=== PATIENT | male | born 1980 | race Caucasian/White ===

== ENCOUNTER 2019-01-03 10:12 | Outpatient (CLI) | payer OTHER | END 2019-01-03 10:13 | disposition home or self-care (01) | LOC: SC 10:12 | PROVIDERS: ATTEND Internal Medicine Pulmonary Disease | DX: R06.83 Snoring (principal); G47.8 Other sleep disorders; G47.10 Hypersomnia, unspecified; R41.89 Other symptoms and signs involving cognitive functions and awareness; R06.81 Apnea, not elsewhere classified; E66.9 Obesity, unspecified; Z68.34 Body mass index [BMI] 34.0-34.9, adult | CPT/HCPCS: 99203; 99212 ==

== ENCOUNTER 2019-01-26 19:25 | Outpatient (CLI) | payer OTHER | END 2019-01-26 19:26 | disposition home or self-care (01) | LOC: SC 19:25 | PROVIDERS: ATTEND Internal Medicine Pulmonary Disease | DX: G47.33 Obstructive sleep apnea (adult) (pediatric) (principal) | CPT/HCPCS: 95810 ==

== ENCOUNTER 2019-02-17 | Outpatient (CLI) | payer OTHER | END 2019-02-17 10:32 | disposition home or self-care (01) | DX: G47.33 Obstructive sleep apnea (adult) (pediatric) (principal) | CPT/HCPCS: 99212; 99215 ==

== ENCOUNTER 2019-04-24 09:08 | Emergency (ER) | payer OTHER ==
[2019-04-24] MEDS ORDERED: SODIUM CHLORIDE 0.9% 1,000 ML IV STA (09:18)
[2019-04-24] MEDS ORDERED: ONDANSETRON 4 MG/2 ML VIAL IVP STA (09:18)
[2019-04-24] MEDS ORDERED: KETOROLAC 30 MG/ML VIAL IVP STA (09:19)
[2019-04-24] MEDS ORDERED: LIDOCAINE-MPF 2% 7.5 ML in SODIUM CHLORIDE 0.9% 50 ML IV STA (09:34)
[2019-04-24] MEDS ORDERED: HYDROmorphone 1 MG/ML CARPUJECT IVP STA (09:34)
[2019-04-24 09:44] LABS: BASOPHILS # (AUTO) 0.1 10^3/uL (0.0-0.1); EOSINOPHILS # (AUTO) 0.1 10^3/uL (0.0-0.7); EOSINOPHILS % (AUTO) 0.7 %; HGB - HEMOGLOBIN 16.9 g/dL (14.0-18.0); LYMPHOCYTES # (AUTO) 2.1 10^3/uL (1.5-3.5); LYMPHOCYTES % (AUTO) 30.5 %; MEAN CORPUSCULAR HEMOGLOBIN 30.1 pg (27.0-31.0); MEAN CORPUSCULAR HGB CONC 34.3 g/dL (32.0-36.0); MEAN CORPUSCULAR VOLUME 87.5 fL (80.0-94.0); MEAN PLATELET VOLUME 9.8 fL (7.4-11.4); MONOCYTES # (AUTO) 0.6 10^3/uL (0.0-1.0); MONOCYTES % (AUTO) 8.2 %; NEUTROPHILS % (AUTO) 59.2 %; PLT - PLATELET COUNT 237 10^3/uL (130-450); RED BLOOD COUNT 5.62 10^6/uL (4.70-6.10); RED CELL DISTRIBUTION WIDTH 12.4 % (12.0-15.0); WHITE BLOOD COUNT 6.8 x10^3/uL (4.8-10.8)
[2019-04-24] MEDS ORDERED: IOVERSOL 320 100 ML VIAL IVP ONE ×2 (09:51→10:25)
[2019-04-24 09:55] LABS: ALBUMIN/GLOBULIN RATIO 1.9 (1.0-2.2); BILIRUBIN,TOTAL 1.3 mg/dL (0.2-1.0); CREATININE 1.2 mg/dL (0.6-1.2); TOTAL PROTEIN 7.7 g/dL (6.7-8.2)
--- NOTE | 2019-04-24 10:08 | ED Physician Documentation ---
History of Present Illness - Stated complaint Stated Complaint: MALE /BACK PX - Chief complaint Chief Complaint: Abd Pain - History obtained from History obtained from: Patient - History of Present Illness Timing: Today Pain level max: 10 Pain level now: 10 - Additonal information Additional information: 39-year-old male with a history of ureteral stones presents to the emergency department with left-sided pelvic pain radiating to the left flank. Similar to prior kidney stones. Has had ureteral stents x2. No fevers. No vomiting. Nothing makes it better or worse. 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 Last ureteral stone was approximately 10 years ago. Does have pain and burning with urination today. Review of Systems Ten Systems: 10 systems reviewed and negative Constitutional: denies: Fever, Chills Ears: denies: Ear pain Nose: denies: Rhinorrhea / runny nose, Congestion Respiratory: denies: Cough GI: denies: Diarrhea, Hematemesis, Bloody / black stool : reports: Dysuria. denies: Discharge, Testicular mass Skin: denies: Rash Musculoskeletal: denies: Neck pain PD PAST MEDICAL HISTORY - Past Medical History Past Medical History: Yes : Kidney stones - Present Medications Home Medications: Ambulatory Orders Medication Instructions Recorded Confirmed Ibuprofen [Motrin] 600 mg PO Q6H PRN 04/24/19 04/24/19 Ibuprofen [Motrin] 800 mg PO Q8H PRN #30 tablet 04/24/19 Ondansetron Odt [Zofran] 4 mg TL Q6H PRN #10 tablet 04/24/19 Oxycodone HCl/Acetaminophen 1 - 2 each PO Q6H PRN #14 tablet 04/24/19 [Percocet 5-325 mg Tablet] - Allergies Allergies/Adverse Reactions: Allergies Allergy/AdvReac Type Severity Reaction Status Date / Time No Known Drug Allergies Allergy Verified 04/24/19 09:18 PD ED PE NORMAL - Vitals Vital signs reviewed: Yes - General General: Alert and oriented X 3, Well developed/nourished, Other (Appears uncomfortable) - HEENT HEENT: PERRL, Moist mucous membranes - Neck Neck: Supple, no meningeal sign - Cardiac Cardiac: RRR - Respiratory Respiratory: No respiratory distress, Clear bilaterally - Abdomen Abdomen: Soft, Non distended, Other (Mild tenderness palpation along the left flank.) - Male Male : Other (Normal testicular exam bilaterally. No swelling. No tenderness) - Back Back: No spinal TTP, Other (Left CVA tenderness) - Derm Derm: Warm and dry - Extremities Extremities: No edema - Neuro Neuro: Alert and oriented X 3 - Psych Psych: Normal mood, Normal affect Results - Vitals Vitals: Vital Signs - 24 hr 04/24/19 04/24/19 04/24/19 09:15 10:07 12:00 Temperature 36.4 C L Heart Rate 69 87 77 Respiratory 18 18 20 Rate Blood Pressure 131/93 H 148/87 H 124/84 H O2 Saturation 100 99 98 Oxygen O2 Source Room air - Labs Labs: Laboratory Tests 04/24/19 04/24/19 04/24/19 09:34 09:38 09:38 WBC 6.8 RBC 5.62 Hgb 16.9 Hct 49.2 MCV 87.5 MCH 30.1 MCHC 34.3 RDW 12.4 Plt Count 237 MPV 9.8 Neut # (Auto) 4.0 Lymph # (Auto) 2.1 [place] # (Auto) 0.6 Eos # (Auto) 0.1 Baso # (Auto) 0.1 Absolute Nucleated RBC 0.00 Nucleated RBC % 0.0 Sodium 143 Potassium 4.0 Chloride 104 Carbon Dioxide 27 Anion Gap 12.0 BUN 13 Creatinine 1.2 Estimated GFR (MDRD) 68 L Glucose 102 H Calcium 10.0 Total Bilirubin 1.3 H AST 23 ALT 34 Alkaline Phosphatase 77 Total Protein 7.7 Albumin 5.0 Globulin 2.7 Albumin/Globulin Ratio 1.9 Lipase 28 Urine Color YELLOW Urine Clarity CLEAR Urine pH 5.5 Ur Specific [place] >=1.030 H Urine Protein TRACE Urine Glucose (UA) NEGATIVE Urine Ketones NEGATIVE Urine Occult Blood LARGE H Urine Nitrite NEGATIVE Urine Bilirubin NEGATIVE Urine Urobilinogen 0.2 (NORMAL) Ur Leukocyte Esterase NEGATIVE Urine RBC 6-10 H Urine WBC 0-3 Ur Squamous Epith Cells NONE SEEN Urine Bacteria Few Ur Microscopic Review INDICATED Urine Culture Comments NOT INDICATED - Rads (name of study) CT abdomen and pelvis Radiology: Prelim report reviewed, EMP read contemporaneously, See rad report (A 3 mm calculus in the left distal ureter results in low-grade obstruction, causing minimal left hydroureteronephrosis and mildly delayed left renal enhancement. 2. Hepatic steatosis. ) PD MEDICAL DECISION MAKING - ED course Complexity details: reviewed results, re-evaluated patient, considered differential, d/w patient ED course: Patient with a 3 mm left UVJ stone. Pain well controlled with Toradol, Dilaudid and IV lidocaine. Will place on pain medication for home. No evidence of infection. Patient counseled regarding signs and symptoms for which I believe and urgent re-evaluation would be necessary. Patient with good understanding of and agreement to plan and is comfortable going home at this time This document was made in part using voice recognition software. While efforts are made to proofread this document, sound alike and grammatical errors may occur. Departure - Departure Disposition: Home, Self Care Clinical Impression: Left ureteral stone Condition: Good Instructions: ED Stone Renal W Colic Follow-Up: your,doctor in 1 week [Other] Prescriptions: Ibuprofen [Motrin] 800 mg PO Q8H PRN #30 tablet PRN Reason: PAIN &/OR FEVER Ondansetron Odt [Zofran] 4 mg TL Q6H PRN #10 tablet PRN Reason: Nausea / Vomiting Oxycodone HCl/Acetaminophen [Percocet 5-325 mg Tablet] 1 - 2 each PO Q6H PRN #14 tablet PRN Reason: pain Comments: You have a 3mm left ureteral stone. This should pass without difficulty. Return for uncontrolled pain vomiting or fevers. Drink plenty of fluids. Do not drink alcohol or drive while on narcotic pain medicine. Note that many narcotic pain relievers also contain tylenol/acetaminophen. Please ensure that your total dose of acetaminophen from all sources does not exceed 3 grams (3000mg) per day. You may constipated on this medication, take a stool softener such as "Colace" twice a day while you are on it. Also recommend a ytfw-vny-jvnhwoz laxative such as senna or MiraLAX any day that you do not have a bowel movement. If you received narcotic pain medication in the emergency department, do not drive or operate machinery for the next 24 hours. Discharge Date/Time: 04/24/19 12:15
[2019-04-24 10:11] LABS: BILIRUBIN,URINE NEGATIVE (NEGATIVE); GLUCOSE, URINE (UA) NEGATIVE (NEGATIVE); KETONES,URINE (UA) NEGATIVE (NEGATIVE); LEUKOCYTE ESTERASE, URINE NEGATIVE (NEGATIVE); NITRITE,URINE NEGATIVE (NEGATIVE); OCCULT BLOOD,URINE LARGE (NEGATIVE); PH,URINE 5.5 PH (5.0-7.5); PROTEIN,URINE TRACE mg/dL (NEGATIVE); UROBILINOGEN,URINE 0.2 (NORMAL) E.U./dL (NORMAL)
[2019-04-24 10:17] LABS: CLARITY,URINE CLEAR (CLEAR)
[2019-04-24 10:33] LABS: BACTERIA,URINE Few /HPF (None Seen); SQUAMOUS EPITHELIAL CELL,UR NONE SEEN (<= Few)
--- NOTE | 2019-04-24 11:28 | CT Report ---
Reason: L sided abd pain Procedure Date: 04/24/2019 Accession Number: [id number] / [id number] Procedure: CT - Abdomen/Pelvis W CPT Code: FULL RESULT: EXAM: CT ABDOMEN AND PELVIS EXAM DATE: 04/24/2019 10:32 AM. CLINICAL HISTORY: Left-sided abdominal pain. COMPARISONS: None. TECHNIQUE: Routine helical CT imaging was performed through the abdomen and pelvis. IV contrast: 90 cc Optiray 320. Enteric contrast: No. Reconstructions: Coronal and sagittal. In accordance with CT protocol optimization, one or more of the following dose reduction techniques were utilized for this exam: automated exposure control, adjustment of mA and/or KV based on patient size, or use of iterative reconstructive technique. FINDINGS: Lung Bases: Calcified granulomas demonstrated in the right lower lobe. Mild bibasilar atelectasis demonstrated. Liver: There is diffuse low-attenuation of the liver, compatible with hepatic steatosis. No focal lesions are demonstrated. Gallbladder/Bile Ducts: Unremarkable. Spleen: Calcified splenic granuloma demonstrated. Otherwise unremarkable. Pancreas: Unremarkable. Adrenal Glands: No nodules. Kidneys: There is a 3 mm calculus in the distal left ureter (series 3, image 85). There is only minimal dilation of the left renal collecting system. However, there is mildly delayed left renal enhancement, suggesting this is causing low-grade obstruction. No other urolithiasis demonstrated. Subcentimeter hypoattenuating foci in the right kidney are too small to characterize. No right hydronephrosis. Peritoneal Cavity/Bowel: No evidence of bowel obstruction or inflammation. Appendix is within normal limits. There are a few colonic diverticuli. No evidence for acute diverticulitis. Pelvic Organs: Urinary bladder is unremarkable. No pelvic adenopathy or free fluid. Vasculature: No abdominal aortic aneurysm. Bones: No suspicious osseous lesion. Other: No upper abdominal or retroperitoneal adenopathy. IMPRESSION: 1. A 3 mm calculus in the left distal ureter results in low-grade obstruction, causing minimal left hydroureteronephrosis and mildly delayed left renal enhancement. 2. Hepatic steatosis. RADIA
[2019-04-24 12:00] VITALS: BP 124/84
== END 2019-04-24 12:15 | disposition home or self-care (01) ==
LOC: ED 09:08
DX: N13.2 Hydronephrosis with renal and ureteral calculous obstruction (principal); Z87.442 Personal history of urinary calculi
CPT/HCPCS: 36415; 74177; 80053; 81001; 83690; 85025; 96361; 96365; 96375; 99284; J1170; J7040; Q9967; 81003; 87086

== ENCOUNTER 2019-05-03 14:12 | Outpatient (CLI) | payer OTHER ==
[2019-05-03 15:30] VITALS: BP 112/84
--- NOTE | 2019-05-03 15:30 | SLEEP CARE CONSULTATION ---
Information from patient questionnaire entered by Agnes Livingston. I have reviewed and concur with the information entered by Agnes Livingston. This document represents the service I personally performed and the decisions made by me, Delmis Mohan, RN, MSN, LEASING ASSOCIATE. History of Present Illness Previous diagnosis: Mild, Obstructive Sleep Apnea-Hypopnea Syndrome AHI: 12.4 Reason for CPAP/BiPAP follow up: first compliance Equipment type: CPAP Equipment obtained from: [employer] Mask style: Nasal (Dreamwear) Mask brand: Respironics Backup mask available: No (advised to keep current mask when replaced for a spare) Last cushion change: a week ago CPAP Compliance Data - Data Reviewed with Patient Average duration of nightly device use: 6.1 Compliance rate %: 93.3 Current pressure setting (cmH2O): 4-15 Humidity settin Heated hose settin Average residual AHI: 0.9 Average large leak: 1 min 28 secs Subjective Patient concerns: reports: mask discomfort (rubbing against mustache and pulling hair since last cushion.), condensation in mask/hose (no gurgling, only mild moisture ), dry mouth, nose, throat (only runs out of water), other (mild ear popping occasionally when swallows and wearing CPAP while reading before bed. ). denies: aerophagia, air blowing in eyes, mask leak noise, nasal congestion, epistaxis Observed to snore while using device: No (sleeps alone) Current pressure setting perceived as: comfortable On therapy, patient: reports: sleeping better, awakening more refreshed, being more awake and alert during the day, more rested overall, other (reduction of morning headaches and waking during the night). denies: drowsiness while driving Initial [place] Sleepiness Scale score: 15 Current [place] Sleepiness Scale score: 10 Allergies and Home Medications Known drug allergies: No Home medication list reviewed: Yes (oxycodone ordered and taken while kidney stone passed last week. ) Review of Systems Review of systems same as previous: No (kidney stone that passed a day later with assistance of pain medication) Physical Exam Blood Pressure: 112/84 Cuff size: long Heart Rate: 80 O2 Saturation: 98 Height: 5 ft 10 in Weight: 243 lb (with boots and fatigue ) Body Mass Index: 34.8 BMI Classification: Obesity Class 1 Impression and Plan 1. Obstructive Sleep Apnea-Hypopnea Syndrome, mild , with good treatment compliance and good apnea control. On CPAP therapy, the patient has better sleep quality and is more rested overall as well as reduction of morning headaches. For his mask concerns, he is advised to change the mask cushion. He can also consider trimming his mustache. He is also to look at size of cushion first used that was comfortable and at present cushion size to see if that was part of problem. I also discussed how to incorporate routine of cleaning in day to include in usual activities. In addition, we discussed cleaning of his equipment to answer his questions and hand out given. He had questions about supply replacement and schedule given. Since he is using a low pressure range, I will reduce his autoCPAP pressure to 4-6cmH20. The autorange will allow him to start at lower pressure to reduce incidence of ear popping. His BMI is 34. 8 class one obesity and advised to lose weight to reduce apnea risk and overall health risks associated with obesity. Patient's apnea severity and rationale for treatment to reduce apnea, improve sleep quality and reduce cardiovascular and cerebrovascular events was reviewed. I also reviewed the benefit of consistent device use of CPAP for depression/anxiety, PTSD. Less night time PTSD has been noted. * * Change CPAP pressure to 4-6 cmH2O * Change the cushion * Implement cleaning equipment as discussed * Notify me if snoring with mask or feeling that the pressure is too much or too little * Attempt to lose weight for apnea risk and overall health. * copy of compliance given. * Return for follow up in 3 months, or sooner if concerns arise I spent 100% of this 35 minute visit face to face with the patient with greater than 50% of this was spent time counseling the patient and coordination of care.
== END 2019-05-03 14:13 | disposition home or self-care (01) ==
LOC: SC 14:12
PROVIDERS: ATTEND Nurse Practitioner Family
DX: G47.33 Obstructive sleep apnea (adult) (pediatric) (principal); E66.9 Obesity, unspecified; Z68.34 Body mass index [BMI] 34.0-34.9, adult
CPT/HCPCS: 99212; 99214

== ENCOUNTER 2019-08-01 13:10 | Outpatient (CLI) | payer OTHER ==
--- NOTE | 2019-08-01 15:03 | SLEEP CARE CONSULTATION ---
Information from patient questionnaire entered by Cintia Cotter. I have reviewed and concur with the information entered by Cintia Cotter. This document represents the service I personally performed and the decisions made by me, Delmis Mohan, RN, MSN, ETHNOLOGY TEACHER. History of Present Illness Previous diagnosis: Mild, Obstructive Sleep Apnea-Hypopnea Syndrome AHI: 12.4 Reason for follow up: three month Equipment type: CPAP Equipment obtained from: [employer] Mask style: Nasal Mask brand: Respironics Backup mask available: Yes Last cushion change: rotating all of mask cushions. Prior sleep studies: Yes HPI additional information: He has gained weight the past few months that he relates to stress. His spouse was hospitalized for diabetic ketoacidosis for a week and then moved to her parents where she can go [facility] where she did well before until stable. He does not like to be away from his family. Plans are being made to visit soon. He has not felt like doing much and is aware this could be depression. He has PTSD and sees a counselor. His appointment is tomorrow. The cushion is fitting better but still mask dislodges during the sleep. CPAP Compliance Data - Data Reviewed with Patient Average duration of nightly device use: 6h 6m Compliance rate %: 92.2 Current pressure setting (cmH2O): 4-6 Humidity settin Heated hose settin Average residual AHI: 0.9 Average large leak: 58s Subjective Patient concerns: reports: mask leak noise (with disloding ), nasal congestion (chronic ), other (mask dislodging in sleep at least nightly and awakens to adjust ). denies: aerophagia, mask discomfort, air blowing in eyes, condensation in mask/hose, dry mouth, nose, throat, epistaxis Observed to snore while using device: No (rare snore ) Current pressure setting perceived as: comfortable On therapy, patient: reports: sleeping better, awakening more refreshed, being more awake and alert during the day, more rested overall. denies: drowsiness while driving Initial [place] Sleepiness Scale score: 15 Current [place] Sleepiness Scale score: 9 Allergies and Home Medications Known drug allergies: No Home medication list reviewed: Yes Allergy and home medication list: motrin as needed. Review of Systems Review of systems same as previous: Yes Physical Exam Blood Pressure: 130/90 Cuff size: long Heart Rate: 74 O2 Saturation: 98 Height: 5 ft 10 in Weight: 250 lb Weight change since last visit: gained 7 pounds Body Mass Index: 35.9 BMI Classification: Obesity Class 2 Impression and Plan 1. Obstructive Sleep Apnea-Hypopnea Syndrome, mild, with good treatment compliance and good apnea control. On CPAP therapy, the patient has better sleep quality and is more rested overall. To prevent mask dislodging in sleep, I ordered a headgear adaptor for his Dreamwear nasal mask. I also showed him a CPAP pillow to reduce mask dislogding while sleeping on his side. To improve fit of cushion, he is to discard old cushions and start with new month shipment and rotate those cushions for one month until replacement, discard and restart. I explained how the cushions wear down with use and could be why his mask dislodges intermittently. In addition, it seems patient has difficulty breathing out of nostrils intermittently and would like to try a full face mask. He likes the hose on top so a Dreamwear fullface mask refitting ordered as seems to be due for a new headgear soon. He is to contact [employer] to schedule before leaves for training. Nasal congestion can be reduced with increasing the CPAP humidity as shown on sample device. The heated hose is to be lowered for comfort of air and can be adjusted higher if condensation with higher humidity setting. Saline nasal spray sample was also given to use prior to CPAP to clear nasal secretions and wash off any nasal allergens to facilitate nasal breathing. In addition, a steamy shower before bed will often assist nasal drainage. Printed instructions given and written rationale for why to change settings. Since he has gained some weight, he was advised how continued weight gain will increase apnea and CPAP pressure. He is advised to lose weight. Currently patients BMI is 35.9 obesity class . Obesity increases the risk of apnea, CPAP pressure requirements and overall health risks especially cardiovascular and diabetes. Thus patient is advised to lose weight. Weight loss can be done with reducing portion size, refined foods and balancing content with vegetables, fruit and protein. A diet consultation can be helpful in achieving optimal weight loss goals if difficulty achieving on own. Patient encouraged to discuss their weight loss goals with their PCP and consider a referral to a manager book. Symptoms to report for additional pressure adjustment discussed. Patient's apnea severity and rationale for treatment to reduce apnea, improve sleep quality and reduce cardiovascular and cerebrovascular events was reviewed. I also reviewed the benefit of consistent device use of CPAP for depression/anxiety / PTSD. Since his apnea is primarily supine, he is advised to avoid supine sleep with pillow positioning. * Continue CPAP pressure at 4-6 cmH2O * headgear adaptor * CPAP pillow * Implement methods to reduce nasal congestion * Notify me if snoring with mask or feeling that the pressure is too much or too little * Attempt to lose weight * Call this office if any problems using CPAP * Return for follow up in 6 months, or sooner if concerns arise Time Spent with Patient (minutes): 40 I spent 100% of this visit face to face with the patient with greater than 50% of this was spent time counseling the patient and coordination of care.
[2019-08-04 16:12] VITALS: BP 130/90
== END 2019-08-01 13:11 | disposition home or self-care (01) ==
LOC: SC 13:10
PROVIDERS: ATTEND Nurse Practitioner Family
DX: G47.33 Obstructive sleep apnea (adult) (pediatric) (principal); E66.9 Obesity, unspecified; Z68.35 Body mass index [BMI] 35.0-35.9, adult
CPT/HCPCS: 99212; 99215

== ENCOUNTER 2020-04-18 15:49 | Emergency (ER) | payer OTHER ==
[2020-04-18] MEDS ORDERED: LORazepam 2 MG/ML VIAL IVP STA ×2 (15:53→16:57)
--- NOTE | 2020-04-18 15:56 | ED Physician Documentation ---
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 He got some bad news today, sounds like he got new orders and they were not good. Subsequently had what was described as a panic attack and then blacked out. Developed some chest pain in route. Still feels anxious with central nonradiating chest pain that is sharp. Review of Systems Ten Systems: 10 systems reviewed and negative Constitutional: denies: Fever, Chills Cardiac: reports: Chest pain / pressure. denies: Palpitations, Pedal edema, Calf pain Respiratory: reports: Dyspnea. denies: Cough PD PAST MEDICAL HISTORY - Past Medical History : Kidney stones - Past Surgical History Past Surgical History: Yes - Present Medications Home Medications: Ambulatory Orders Medication Instructions Recorded Confirmed Ibuprofen [Motrin] 600 mg PO Q6H PRN 04/24/19 04/24/19 Ibuprofen [Motrin] 800 mg PO Q8H PRN #30 tablet 04/24/19 Ondansetron Odt [Zofran] 4 mg TL Q6H PRN #10 tablet 04/24/19 Oxycodone HCl/Acetaminophen 1 - 2 each PO Q6H PRN #14 tablet 04/24/19 [Percocet 5-325 mg Tablet] - Allergies Allergies/Adverse Reactions: Allergies Allergy/AdvReac Type Severity Reaction Status Date / Time No Known Drug Allergies Allergy Verified 04/24/19 09:18 - Social History Does the pt smoke?: No Smoking Status: Never smoker Does the pt drink ETOH?: No Does the pt have substance abuse?: No - Immunizations Immunizations are current?: Yes PD ED PE NORMAL - Vitals Vital signs reviewed: Yes - General General: Alert and oriented X 3, Other (Hyperventilating and tearful) - HEENT HEENT: PERRL, EOMI - Neck Neck: Supple, no meningeal sign, No bony TTP - Cardiac Cardiac: RRR, No murmur - Respiratory Respiratory: No respiratory distress, Clear bilaterally - Abdomen Abdomen: Non tender - Back Back: No CVA TTP, No spinal TTP - Derm Derm: Normal color, Warm and dry, No rash - Extremities Extremities: No edema, No calf tenderness / cord - Neuro Neuro: Alert and oriented X 3, Normal speech - Psych Psych: Other (Anxious, poor eye contact) Results - Vitals Vitals: Vital Signs - 24 hr 04/18/20 04/18/20 04/18/20 15:51 16:06 17:21 Temperature 37.2 C Heart Rate 71 78 84 Respiratory 18 18 18 Rate Blood Pressure 151/91 H 130/89 H 134/87 H O2 Saturation 94 97 96 04/18/20 18:41 Temperature Heart Rate 77 Respiratory 16 Rate Blood Pressure 134/91 H O2 Saturation 98 Oxygen O2 Source Room air - EKG (time done) 1556 Rate: Rate (enter#) (74) Rhythm: NSR Sims: LAD Intervals: Normal TN QRS: Normal Ischemia: Non specific changes. No: ST elevation c/w ischemia, ST depression Computer interpretation: Agree with computer - Labs Labs: Laboratory Tests 04/18/20 04/18/20 04/18/20 15:53 15:53 15:53 WBC 7.1 RBC 5.49 Hgb 16.7 Hct 47.8 MCV 87.1 MCH 30.4 MCHC 34.9 RDW 12.0 Plt Count 244 MPV 9.9 Neut # (Auto) Not Reportable Lymph # (Auto) Not Reportable [place] # (Auto) Not Reportable Eos # (Auto) Not Reportable Baso # (Auto) Not Reportable Absolute Nucleated RBC Not Reportable Total Counted 100 Band Neuts % (Manual) 1 Abnorm Lymph % (Manual) 0 Nucleated RBC % Not Reportable Neutrophils # (Manual) 4.0 Lymphocytes # (Manual) 2.4 Monocytes # (Manual) 0.4 Eosinophils # (Manual) 0.1 Basophils # (Manual) 0.2 H Differential Comment MANUAL DIFFERENTIAL WBC Morphology 1+ TOXIC GRANULATION Platelet Estimate NORMAL (130-450,000) Platelet Morphology NORMAL APPEARANCE RBC Morph Micro Appear NORMAL APPEARANCE VBG pH VBG pCO2 VBG pO2 VBG HCO3 VBG Total CO2 VBG O2 Saturation VBG Base Excess Troponin I High Sens TSH 1.61 Urine Color Urine Clarity Urine pH Ur Specific [place] Urine Protein Urine Glucose (UA) Urine Ketones Urine Occult Blood Urine Nitrite Urine Bilirubin Urine Urobilinogen Ur Leukocyte Esterase Urine RBC Urine WBC Ur Squamous Epith Cells Amorphous Sediment Urine Bacteria Ur Microscopic Review Urine Culture Comments Salicylates < 6.0 Urine Opiates Screen Ur Oxycodone Screen Urine Methadone Screen Ur Propoxyphene Screen Acetaminophen < 10 L Ur Barbiturates Screen Ur Tricyclics Screen Ur Phencyclidine Scrn Ur Amphetamine Screen U Methamphetamines Scrn U Benzodiazepines Scrn Urine Cocaine Screen U Cannabinoids Screen Ethyl Alcohol 04/18/20 04/18/20 04/18/20 15:58 15:58 15:58 WBC RBC Hgb Hct MCV MCH MCHC RDW Plt Count MPV Neut # (Auto) Lymph # (Auto) [place] # (Auto) Eos # (Auto) Baso # (Auto) Absolute Nucleated RBC Total Counted Band Neuts % (Manual) Abnorm Lymph % (Manual) Nucleated RBC % Neutrophils # (Manual) Lymphocytes # (Manual) Monocytes # (Manual) Eosinophils # (Manual) Basophils # (Manual) Differential Comment WBC Morphology Platelet Estimate Platelet Morphology RBC Morph Micro Appear VBG pH 7.327 VBG pCO2 41.3 VBG pO2 29.8 VBG HCO3 21.1 L VBG Total CO2 22.4 L VBG O2 Saturation 61.9 VBG Base Excess -4.6 L Troponin I High Sens 3.4 TSH Urine Color Urine Clarity Urine pH Ur Specific [place] Urine Protein Urine Glucose (UA) Urine Ketones Urine Occult Blood Urine Nitrite Urine Bilirubin Urine Urobilinogen Ur Leukocyte Esterase Urine RBC Urine WBC Ur Squamous Epith Cells Amorphous Sediment Urine Bacteria Ur Microscopic Review Urine Culture Comments Salicylates Urine Opiates Screen Ur Oxycodone Screen Urine Methadone Screen Ur Propoxyphene Screen Acetaminophen Ur Barbiturates Screen Ur Tricyclics Screen Ur Phencyclidine Scrn Ur Amphetamine Screen U Methamphetamines Scrn U Benzodiazepines Scrn Urine Cocaine Screen U Cannabinoids Screen Ethyl Alcohol < 5.0 04/18/20 04/18/20 16:29 16:30 WBC RBC Hgb Hct MCV MCH MCHC RDW Plt Count MPV Neut # (Auto) Lymph # (Auto) [place] # (Auto) Eos # (Auto) Baso # (Auto) Absolute Nucleated RBC Total Counted Band Neuts % (Manual) Abnorm Lymph % (Manual) Nucleated RBC % Neutrophils # (Manual) Lymphocytes # (Manual) Monocytes # (Manual) Eosinophils # (Manual) Basophils # (Manual) Differential Comment WBC Morphology Platelet Estimate Platelet Morphology RBC Morph Micro Appear VBG pH VBG pCO2 VBG pO2 VBG HCO3 VBG Total CO2 VBG O2 Saturation VBG Base Excess Troponin I High Sens TSH Urine Color YELLOW Urine Clarity CLOUDY Urine pH 5.5 Ur Specific [place] >=1.030 H Urine Protein NEGATIVE Urine Glucose (UA) NEGATIVE Urine Ketones 40 H Urine Occult Blood SMALL H Urine Nitrite NEGATIVE Urine Bilirubin NEGATIVE Urine Urobilinogen 0.2 (NORMAL) Ur Leukocyte Esterase NEGATIVE Urine RBC 0-5 Urine WBC 0-3 Ur Squamous Epith Cells NONE SEEN Amorphous Sediment Marked Urine Bacteria None Seen Ur Microscopic Review INDICATED Urine Culture Comments NOT INDICATED Salicylates Urine Opiates Screen NEGATIVE Ur Oxycodone Screen NEGATIVE Urine Methadone Screen NEGATIVE Ur Propoxyphene Screen NEGATIVE Acetaminophen Ur Barbiturates Screen NEGATIVE Ur Tricyclics Screen NEGATIVE Ur Phencyclidine Scrn NEGATIVE Ur Amphetamine Screen NEGATIVE U Methamphetamines Scrn NEGATIVE U Benzodiazepines Scrn NEGATIVE Urine Cocaine Screen NEGATIVE U Cannabinoids Screen NEGATIVE Ethyl Alcohol PD MEDICAL DECISION MAKING - ED course ED course: 40-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 He received some bad news today. While here he made some concerning statements, he denies suicidal ideation, but feels like he might hurt someone and may not be able to control himself. I tried calling his therapist, but no answer. Call out to [facility] for potential hospitalization at 4:48 PM. Subsequently was accepted by Dr. Dent at [facility] after 5 PM. Cobras were completed. He stable for transport. The kim with whom I was working at [facility] wanted us to be sure that the patient would be made aware of their policies with regard to personal items, COVID testing etc. He faxed me a packet which I shared with the patient. Departure - Departure Disposition: 65 Psych Hosp/Unit DC/Xfer Clinical Impression: Anxiety, Grief reaction Condition: Stable
[2020-04-18 16:14] LABS: VBG BASE EXCESS -4.6 mmol/L (-2 - +2); VBG PCO2 41.3 mmHg (41-51); VBG PH 7.327 (7.31-7.41); VBG PO2 29.8 mmHg (25-47); VBG TOTAL CO2 22.4 mmol/L (24-29)
[2020-04-18 16:32] LABS: MUDS CUTOFF CONCENTRATIONS CUTOFF CONC BELOW:
[2020-04-18 16:44] LABS: AMPHETAMINE SCREEN,URINE NEGATIVE (NEGATIVE); BENZODIAZEPINES SCREEN, URINE NEGATIVE (NEGATIVE); COCAINE SCREEN URINE NEGATIVE (NEGATIVE); METHADONE SCREEN, URINE NEGATIVE (NEGATIVE); METHAMPHETAMINES SCREEN, URINE NEGATIVE (NEGATIVE); OPIATE SCREEN, URINE NEGATIVE (NEGATIVE); OXYCODONE SCREEN, URINE NEGATIVE (NEGATIVE); PROPOXYPHENE SCREEN, URINE NEGATIVE (NEGATIVE); TRICYCLIC ANTIDEPRESSANT,URINE NEGATIVE (NEGATIVE)
[2020-04-18 16:51] LABS: BASOPHILS % (AUTO) 0.8 %; EOSINOPHILS % (AUTO) 0.4 %; HGB - HEMOGLOBIN 16.7 g/dL (14.0-18.0); LYMPHOCYTES % (AUTO) 31.5 %; MEAN CORPUSCULAR HEMOGLOBIN 30.4 pg (27.0-31.0); MEAN CORPUSCULAR HGB CONC 34.9 g/dL (32.0-36.0); MEAN CORPUSCULAR VOLUME 87.1 fL (80.0-94.0); MEAN PLATELET VOLUME 9.9 fL (7.4-11.4); NEUTROPHILS % (AUTO) 59.9 %; PLT - PLATELET COUNT 244 10^3/uL (130-450); RED BLOOD COUNT 5.49 10^6/uL (4.70-6.10); WHITE BLOOD COUNT 7.1 x10^3/uL (4.8-10.8)
[2020-04-18 16:57] LABS: ABNORMAL LYMPHS % (MANUAL) 0 %
[2020-04-18 17:02] LABS: ACETAMINOPHEN < 10 ug/mL (10-30); SALICYLATE < 6.0 mg/dL
[2020-04-18 18:09] LABS: BILIRUBIN,URINE NEGATIVE (NEGATIVE); GLUCOSE, URINE (UA) NEGATIVE (NEGATIVE); KETONES,URINE (UA) 40 mg/dL (NEGATIVE); LEUKOCYTE ESTERASE, URINE NEGATIVE (NEGATIVE); NITRITE,URINE NEGATIVE (NEGATIVE); OCCULT BLOOD,URINE SMALL (NEGATIVE); PH,URINE 5.5 PH (5.0-7.5); PROTEIN,URINE NEGATIVE (NEGATIVE); UROBILINOGEN,URINE 0.2 (NORMAL) E.U./dL (NORMAL)
[2020-04-18 18:12] LABS: BAND NEUTROPHILS % (MANUAL) 1 %; BASOPHILS # (MANUAL) 0.2 10^3/uL (0-0.1); BASOPHILS % (MANUAL) 3 %; EOSINOPHILS # (MANUAL) 0.1 10^3/uL (0-0.7); LYMPHOCYTES # (MANUAL) 2.4 10^3/uL (1.5-3.5); LYMPHOCYTES % (MANUAL) 34 %; MONOCYTES # (MANUAL) 0.4 10^3/uL (0.0-1.0)
[2020-04-18 18:13] LABS: DIFFERENTIAL COMMENT MANUAL DIFFERENTIAL; PLATELET ESTIMATE, MANUAL NORMAL (130-450,000) (NORMAL); PLATELET MORPHOLOGY NORMAL APPEARANCE (NORMAL); RBC MORPHOLOGY (MULTIPLE) NORMAL APPEARANCE (NORMAL)
[2020-04-18 18:18] LABS: BACTERIA,URINE None Seen /HPF (None Seen); CLARITY,URINE CLOUDY (CLEAR); RBC,URINE 0-5 /HPF (0-5); SQUAMOUS EPITHELIAL CELL,UR NONE SEEN (<= Few)
[2020-04-18 18:19] LABS: AMORPHOUS SEDIMENT,UR Marked /LPF
[2020-04-18] MEDS ORDERED: ACETAMINOPHEN 325 MG TABLET PO STA (19:13)
[2020-04-18 19:19] VITALS: BP 158/96
== END 2020-04-18 19:51 ==
LOC: ED 15:49
DX: F41.0 Panic disorder [episodic paroxysmal anxiety] (principal); F43.22 Adjustment disorder with anxiety; R45.850 Homicidal ideations
CPT/HCPCS: 36415; 80320; 80329; 81001; 82803; 84443; 84484; 85025; 93005; 96374; 96376; 99284; 99285; A9270; J2060; 80306; 80307; 81003; 87086

== ENCOUNTER 2020-06-17 19:34 | Observation (INO) | payer OTHER ==
[2020-06-17 20:16] LABS: BASOPHILS # (AUTO) 0.1 10^3/uL (0.0-0.1); BASOPHILS % (AUTO) 1.1 %; EOSINOPHILS # (AUTO) 0.1 10^3/uL (0.0-0.7); EOSINOPHILS % (AUTO) 0.7 %; HGB - HEMOGLOBIN 16.2 g/dL (14.0-18.0); LYMPHOCYTES # (AUTO) 2.7 10^3/uL (1.5-3.5); LYMPHOCYTES % (AUTO) 28.9 %; MEAN CORPUSCULAR HEMOGLOBIN 30.6 pg (27.0-31.0); MEAN CORPUSCULAR HGB CONC 35.7 g/dL (32.0-36.0); MEAN CORPUSCULAR VOLUME 85.8 fL (80.0-94.0); MEAN PLATELET VOLUME 9.6 fL (7.4-11.4); MONOCYTES # (AUTO) 0.6 10^3/uL (0.0-1.0); MONOCYTES % (AUTO) 6.4 %; NEUTROPHILS # (AUTO) 5.7 10^3/uL (1.5-6.6); NEUTROPHILS % (AUTO) 62.1 %; PLT - PLATELET COUNT 244 10^3/uL (130-450); RED BLOOD COUNT 5.29 10^6/uL (4.70-6.10); RED CELL DISTRIBUTION WIDTH 12.4 % (12.0-15.0); WHITE BLOOD COUNT 9.2 x10^3/uL (4.8-10.8)
[2020-06-17 20:23] LABS: VBG PCO2 41.8 mmHg (41-51); VBG PH 7.278 (7.31-7.41)
[2020-06-17 20:24] LABS: VBG BASE EXCESS -7.3 mmol/L (-2 - +2); VBG PO2 31.9 mmHg (25-47); VBG TOTAL CO2 20.4 mmol/L (24-29)
[2020-06-17 20:31] LABS: KETONES, SERUM (ACETEST) NEGATIVE (NEGATIVE)
[2020-06-17 20:37] LABS: ACETAMINOPHEN < 10 ug/mL (10-30); ALBUMIN 4.7 g/dL (3.2-5.5); ALBUMIN/GLOBULIN RATIO 1.6 (1.0-2.2); ALKALINE PHOSPHATASE 91 IU/L (42-121); ALT ALANINE AMINOTRANSFERASE 34 IU/L (10-60); AST ASPARTATE AMINOTRANSFERASE 23 IU/L (10-42); BILIRUBIN,TOTAL 0.9 mg/dL (0.2-1.0); BUN - BLOOD UREA NITROGEN 13 mg/dL (6-20); CARBON DIOXIDE - CO2 20 mmol/L (21-32); CHLORIDE 110 mmol/L (101-111); CREATININE 1.3 mg/dL (0.6-1.2); GLUCOSE 129 mg/dL (70-100); LIPASE 40 U/L (22-51); SALICYLATE < 6.0 mg/dL; SODIUM 142 mmol/L (135-145); TOTAL PROTEIN 7.7 g/dL (6.7-8.2)
--- NOTE | 2020-06-17 20:39 | ED Physician Documentation ---
History of Present Illness - Stated complaint Stated Complaint: HIGH BLOOD SUGAR, DRY MOUTH, SLURRED SPEECH - Chief complaint Chief Complaint: Neuro - History obtained from History obtained from: Patient - History of Present Illness Timing: Today Pain level max: 0 Pain level now: 0 - Additonal information Additional information: 40-year-old male presents to the emergency department with slurred speech today. He states that this started this morning. He states he has been dizzy, feeling off balance and like things are spinning today as well. He states he recently lost vision in his treatment for PTSD in [facility]. He reports negative CT scan at that time. Did not have an MRI. Has no other focal neurological deficits. He feels like his speech is still intermittently slurred. Nothing makes it better or worse. Review of Systems Ten Systems: 10 systems reviewed and negative Constitutional: denies: Fever, Chills Ears: denies: Ear pain Nose: denies: Rhinorrhea / runny nose, Congestion Throat: denies: Oral lesions / sores Cardiac: denies: Chest pain / pressure Respiratory: denies: Dyspnea, Cough GI: denies: Nausea, Vomiting Skin: denies: Rash Musculoskeletal: denies: Neck pain, Back pain Neurologic: reports: Headache (Patient states he has chronic headaches. He states this is unchanged from his baseline.) PD PAST MEDICAL HISTORY - Past Medical History Cardiovascular: None Respiratory: None Neuro: Headaches, Migraines Endocrine/Autoimmune: None GI: None : Kidney stones HEENT: None Psych: Depression, Anxiety, Panic attacks, Post traumatic stress disorder Musculoskeletal: None Derm: None - Past Surgical History Past Surgical History: Yes - Present Medications Home Medications: Ambulatory Orders Medication Instructions Recorded Confirmed Topiramate [Topamax] 100 mg PO BID 06/17/20 06/17/20 cloNIDine [Catapres] 0.1 mg HS 06/17/20 06/17/20 - Allergies Allergies/Adverse Reactions: Allergies Allergy/AdvReac Type Severity Reaction Status Date / Time No Known Drug Allergies Allergy Verified 06/17/20 19:42 - Social History Does the pt smoke?: No Smoking Status: Never smoker Does the pt drink ETOH?: No Does the pt have substance abuse?: No - Immunizations Immunizations are current?: Yes PD ED PE NORMAL - Vitals Vital signs reviewed: Yes - General General: Alert and oriented X 3, No acute distress - HEENT HEENT: Atraumatic, Moist mucous membranes, Other (Left eye appears to stop near the midline when looking to his left. Also has no loss of vision in the lateral aspect of the left eye.) - Neck Neck: Supple, no meningeal sign, No bony TTP - Cardiac Cardiac: RRR, Strong equal pulses - Respiratory Respiratory: No respiratory distress, Clear bilaterally - Abdomen Abdomen: Soft, Non tender, Non distended - Derm Derm: Warm and dry - Extremities Extremities: No edema, No calf tenderness / cord - Neuro Neuro: Alert and oriented X 3, No motor deficit, No sensory deficit, Other (Mild slurring of speech) Eye Opening: Spontaneous Motor: Obeys Commands Verbal: Oriented GCS Score: 15 - Psych Psych: Normal mood, Normal affect Results - Vitals Vitals: Vital Signs - 24 hr 06/17/20 06/17/20 06/17/20 19:42 19:54 20:17 Temperature 36.6 C 36.8 C Heart Rate 100 88 83 Respiratory 18 16 14 Rate Blood Pressure 133/90 H 98/79 115/87 H O2 Saturation 98 98 100 06/17/20 06/17/20 20:30 21:05 Temperature 36.8 C Heart Rate 83 82 Respiratory 14 Rate Blood Pressure 126/88 H 123/87 H O2 Saturation 100 Oxygen O2 Source Room air - Labs Labs: Laboratory Tests 06/17/20 06/17/20 06/17/20 20:05 20:05 20:05 WBC 9.2 RBC 5.29 Hgb 16.2 Hct 45.4 MCV 85.8 MCH 30.6 MCHC 35.7 RDW 12.4 Plt Count 244 MPV 9.6 Neut # (Auto) 5.7 Lymph # (Auto) 2.7 [place] # (Auto) 0.6 Eos # (Auto) 0.1 Baso # (Auto) 0.1 Absolute Nucleated RBC 0.00 Nucleated RBC % 0.0 VBG pH VBG pCO2 VBG pO2 VBG HCO3 VBG Total CO2 VBG O2 Saturation VBG Base Excess Sodium 142 Potassium 3.6 Chloride 110 Carbon Dioxide 20 L Anion Gap 12.0 BUN 13 Creatinine 1.3 H Estimated GFR (MDRD) 62 L Glucose 129 H Calcium 9.0 Total Bilirubin 0.9 AST 23 ALT 34 Alkaline Phosphatase 91 Total Protein 7.7 Albumin 4.7 Globulin 3.0 Albumin/Globulin Ratio 1.6 Lipase 40 TSH 2.93 Urine Color Urine Clarity Urine pH Ur Specific [place] Urine Protein Urine Glucose (UA) Urine Ketones Urine Occult Blood Urine Nitrite Urine Bilirubin Urine Urobilinogen Ur Leukocyte Esterase Ur Microscopic Review Urine Culture Comments Salicylates < 6.0 Urine Opiates Screen Ur Oxycodone Screen Urine Methadone Screen Ur Propoxyphene Screen Acetaminophen < 10 L Ur Barbiturates Screen Ur Tricyclics Screen Ur Phencyclidine Scrn Ur Amphetamine Screen U Methamphetamines Scrn U Benzodiazepines Scrn Urine Cocaine Screen U Cannabinoids Screen Ethyl Alcohol < 5.0 Serum Ketones NEGATIVE 06/17/20 06/17/20 20:14 20:47 WBC RBC Hgb Hct MCV MCH MCHC RDW Plt Count MPV Neut # (Auto) Lymph # (Auto) [place] # (Auto) Eos # (Auto) Baso # (Auto) Absolute Nucleated RBC Nucleated RBC % VBG pH 7.278 L VBG pCO2 41.8 VBG pO2 31.9 VBG HCO3 19.1 L VBG Total CO2 20.4 L VBG O2 Saturation 64.5 VBG Base Excess -7.3 L Sodium Potassium Chloride Carbon Dioxide Anion Gap BUN Creatinine Estimated GFR (MDRD) Glucose Calcium Total Bilirubin AST ALT Alkaline Phosphatase Total Protein Albumin Globulin Albumin/Globulin Ratio Lipase TSH Urine Color YELLOW Urine Clarity CLEAR Urine pH 6.0 Ur Specific [place] 1.025 Urine Protein NEGATIVE Urine Glucose (UA) NEGATIVE Urine Ketones NEGATIVE Urine Occult Blood NEGATIVE Urine Nitrite NEGATIVE Urine Bilirubin NEGATIVE Urine Urobilinogen 0.2 (NORMAL) Ur Leukocyte Esterase NEGATIVE Ur Microscopic Review NOT INDICATED Urine Culture Comments NOT INDICATED Salicylates Urine Opiates Screen NEGATIVE Ur Oxycodone Screen NEGATIVE Urine Methadone Screen NEGATIVE Ur Propoxyphene Screen NEGATIVE Acetaminophen Ur Barbiturates Screen NEGATIVE Ur Tricyclics Screen NEGATIVE Ur Phencyclidine Scrn NEGATIVE Ur Amphetamine Screen NEGATIVE U Methamphetamines Scrn NEGATIVE U Benzodiazepines Scrn NEGATIVE Urine Cocaine Screen NEGATIVE U Cannabinoids Screen NEGATIVE Ethyl Alcohol Serum Ketones PD MEDICAL DECISION MAKING - ED course Complexity details: reviewed results, re-evaluated patient, considered differential, d/w patient ED course: 40-year-old male with strokelike symptoms. Also concerning for other etiologies such as multiple sclerosis. Unclear etiology of his symptoms tonight. Head CT is ordered and pending. We will admit the patient for further neurological work-up. Discussed the case with Dr. Contreras, hospitalist who accepts. 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, left eye Condition: Stable NIHSS - Time Time: 21:00 - Level of Consciousness Level of consciousness: (0) Alert, Keenly responsive LOC Questions: (0) Answers both Q's correct LOC Commands: (0) Performs both correctly - Gaze Best Gaze: (1) Partial gaze palsy - Visual Visual: (2) Complete Hemianopia - Facial Palsy Facial Palsy: (0) Normal, symmetrical movement - Motor Arms (both separate) Motor Arm (right): (0) No drift Motor Arm (left): (0) No drift - Motor Legs (both separate) Motor Leg (right): (0) No drift Motor Leg (left): (0) No drift - Limb Ataxia Limb Ataxia: (0) Absent - Sensory Sensory: (0) Normal - Best Language Best Language: (0) No aphasia - Dysarthria Dysarthria: (1) [id number] dysarthria - Extinction and Inattention (formally neg Extinction and inattention: (0) No abnormality - Total Score/Results Total Score/Result: 4
[2020-06-17 20:50] LABS: MUDS CUTOFF CONCENTRATIONS CUTOFF CONC BELOW:
[2020-06-17 20:52] LABS: BILIRUBIN,URINE NEGATIVE (NEGATIVE); GLUCOSE, URINE (UA) NEGATIVE (NEGATIVE); KETONES,URINE (UA) NEGATIVE (NEGATIVE); LEUKOCYTE ESTERASE, URINE NEGATIVE (NEGATIVE); NITRITE,URINE NEGATIVE (NEGATIVE); OCCULT BLOOD,URINE NEGATIVE (NEGATIVE); PROTEIN,URINE NEGATIVE (NEGATIVE); UROBILINOGEN,URINE 0.2 (NORMAL) E.U./dL (NORMAL)
[2020-06-17 20:55] LABS: CLARITY,URINE CLEAR (CLEAR)
[2020-06-17] MEDS ORDERED: SODIUM CHLORIDE 0.9% 1,000 ML IV STA (21:09)
[2020-06-17 21:17] LABS: AMPHETAMINE SCREEN,URINE NEGATIVE (NEGATIVE); BENZODIAZEPINES SCREEN, URINE NEGATIVE (NEGATIVE); COCAINE SCREEN URINE NEGATIVE (NEGATIVE); METHADONE SCREEN, URINE NEGATIVE (NEGATIVE); METHAMPHETAMINES SCREEN, URINE NEGATIVE (NEGATIVE); OPIATE SCREEN, URINE NEGATIVE (NEGATIVE); OXYCODONE SCREEN, URINE NEGATIVE (NEGATIVE); PROPOXYPHENE SCREEN, URINE NEGATIVE (NEGATIVE); TRICYCLIC ANTIDEPRESSANT,URINE NEGATIVE (NEGATIVE)
[2020-06-17] MEDS ORDERED: MECLIZINE 12.5 MG TABLET PO STA (21:33)
[2020-06-17] MEDS ORDERED: SODIUM CHLORIDE FLUSH 0.9% 10 ML SYRINGE IVP PRN (21:37)
[2020-06-17] MEDS ORDERED: PROCHLORPERAZINE 10 MG/2 ML VIAL IVP PRN (21:37)
[2020-06-17] MEDS ORDERED: ONDANSETRON 4 MG/2 ML VIAL IVP PRN (21:37)
[2020-06-17] MEDS ORDERED: ONDANSETRON ODT 4 MG TABLET TL PRN (21:37)
[2020-06-17] MEDS ORDERED: ACETAMINOPHEN 325 MG TABLET PO PRN (21:37)
[2020-06-17] MEDS ORDERED: oxyCODONE 5 MG TABLET PO PRN (21:37)
--- NOTE | 2020-06-17 21:47 | HISTORY & PHYSICAL EXAMINATION ---
Chief Complaint - Chief Complaint Chief Complaint: slurred speech and high glucose History of Present Illness - Admitted From Admitted From:: Home via ER - [facility] obtained from: Dr. blancas Exam Limitations: none - History of Present Illness HPI Comment/Other: White male who has a history of an anxiety disorder with depression and PTSD and presents with waxing and waning neurological deficit. He states that the deficit actually occurred recently and he was evaluated at [facility] psychiatric facility. He does not remember them doing an MRI. Deficit Was blur red vision, and a left lower quadrant visual field loss. He said it was verified by an eye doctor. It never went away and he went home. He is supposed to follow-up with [place] [employer] [place] but has not gotten around to it yet. Has not reported back for duty yet. Earlier today he began having slurred speech, and he thought that his sugar was high. In addition to the slurred speech, he is having a hard time finding words. He knows what he wants to say, but he cannot say it. He continues to have the left lower field visual deficit that he had before. He is also seeing things move around the room. For instance in the emergency room he felt as if the ceiling was caving in on top of his all and he was startled and grabbed for my hand, and asked if I could see that. So he checked his sugar with his 's glucometer that she left behind after moving to [place], and it read "high" and that brought him to the emergency room. Glucose in our emergency room is 129. There is no history of headache, fever, chills. No sore throat. No runny nose. No cough, con gestion. Examination with the emergency room physician shows him to be afebrile at 36.6. Heart rate of 100 the slow down to 83 as time went on. Heart rate is now 82. Respirations are 18 and now 14. Blood pressure started at 133/90 and is now 123/87. He is 100% saturated on room air. Examination has no deficits. CT of the head was done and is negative. However because of 2 separate episodes over time and space, patient is now admitted observation status. He will receive an MRI in the morning. If MRI shows suspicion of MS, he would be a candidate for lumbar puncture. History - Past Medical History Cardiovascular: reports: None Respiratory: reports: Sleep apnea (Obstructive sleep apnea hypopnea syndrome on sleep study February 2019. On CPAP.), CPAP use, Other (03/29/2020 10:17:37 Priscilla Pina] Event reporting committee met and decided opportunities identified with education including communication and training. Final grievance letter sent 03/29/2020.) Neuro: reports: Headaches (daily), Migraines Endocrine/Autoimmune: reports: None GI: reports: None : reports: Kidney stones (Nephrolithiasis with kidney stone left ureter causing low-grade obstruction and left hydroureteronephrosis April 2019) HEENT: reports: None Psych: reports: Depression, Anxiety, Panic attacks (Panic attack April 18, 2020 in association with new duty station orders), Post traumatic stress disorder Musculoskeletal: reports: Other (mild chronic daily joint pain) Derm: reports: None MRSA Hx?: No - Family & Social History Family History Comment/Other: Mom is 58 years old and has problems with obesity, early diabetes. Dad is also in his late 50s, early 60s but healthy. 1 brother and 1 sister. One is a teacher, one is a nurse. Both are healthy without diabetes, cancer, heart attack, thyroid. 4 children. Oldest son has high s pectrum autism and ADHD. Living arrangement: At home Living Situation: Alone Social History Notes: Smokes 1 cigarette, maybe once every 2 or 3 years. Does not have a history of alcohol abuse. 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 Last year became ill with uncontrolled type 1 diabetes mellitus due to lack of self-care. She is a [id number] mom overwhelmed by 4 children. Was not taking care of her self. She was hospitalized here. Decision was made for her mother to fly in from [place] to pick her up. She has been living in [place] with their 4 children for the last year. - Substance History Use: Uses substance without health or social issues: NONE Abuse: Recurrent use of substance despite neg consequences: NONE Dependence: Experiences withdrawal or developed tolerances: NONE - POLST Patient has POLST: No POLST Status: Full Code Meds/Allgy - Home Medications Home Medications: Ambulatory Orders Medication Instructions Recorded Confirmed Topiramate [Topamax] 100 mg PO BID 06/17/20 06/17/20 cloNIDine [Catapres] 0.1 mg 06/17/20 06/17/20 - Allergies Allergies/Adverse Reactions: Allergies Allergy/AdvReac Type Severity Reaction Status Date / Time No Known Drug Allergies Allergy Verified 06/17/20 19:42 Review of Systems - Constitutional Constitutional: denies: Fatigue, Fever, Chills, Malaise, Poor appetite, Night sw eats - Eyes Eyes: reports: Field loss, Vision loss, Corrective lenses. denies: Pain, Irritation, Amaurosis, Blurred vision - Ears, Nose & Throat Ears, Nose & Throat: denies: Ear pain, Hearing loss, Hearing aids, Tinnitus, Vertigo, Nasal pain, Nasal discharge, Sore throat, Hoarseness - Cardiovascular Cariovascular: denies: Irregular heart rate, Palpitations, Chest pain, Edema, Syncope - Respiratory Respiratory: denies: Cough, Sputum production, Wheezing, SOB at rest, SOB with exertion - Gastrointestinal Gastrointestinal: denies: Abdominal pain, Abdominal distention, Constipation, Diarrhea, Change in bowel habits, Rectal bleeding - Genitourinary Genitourinary: denies: Dysuria, Frequency, Urgency, Hematuria, Nocturia - Musculoskeletal Musculoskeletal: reports: Muscle pain, Muscle aches, Joint pain, Other (All of his musculoskeletal complaints are chronic, low-grade, and unchanged over the last 2 years) - Integumentary Integumentary: denies: Rash, Pruritis, Lesions, Dryness - Neurological Neurological: reports: Memory problems (Tonight. He just cannot remember things to say the words), Slurred speech (Tonight). denies: General weakness, Focal weakness - Psychiatric Psychiatric: reports: Depression, Anxiety. denies: Suicidal, Delusions - Endocrine Endocrine: denies: Polyuria, Polydypsia, Polyphagia - Hematologic/Lymphatic Hematologic/Lymphatic: denies: Anemia, Bruising, Petechiae, Blood clots, Lymphadenopathy Prior Level of Functionality: Active duty [employer]. 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 Exam - Vital Signs Reviewed Vital Signs: Yes Vital Signs: Vital Signs x48h Temp Pulse Resp BP Pulse Ox 06/17/20 21:05 82 123/87 H 06/17/20 20:30 36.8 C 83 14 126/88 H 100 06/17/20 20:17 36.8 C 83 14 115/87 H 100 06/17/20 19:54 88 16 98/79 98 06/17/20 19:42 36.6 C 100 18 133/90 H 98 - Physical Exam General Appearance: positive: No acute distress, Alert, Other (Moderately overweight white male at 5 feet 10 inches weighing 108.8 kg. Comfortable in bed. Wearing his glasses. Startled at the visual changes such as "the ceiling is falling in") Eyes Bilateral: positive: PERRL, EOMI ENT: positive: Pharynx nml, No signs of dehydration Neck: positive: No JVD. negative: Stiff neck Respiratory: positive: No respiratory distress. negative: Wheezes, Rales, Rhonchi Cardiovascular: positive: Regular rate & rhythm, No murmur, No gallop Peripheral Pulses: positive: 1+ Abdomen: positive: Non-tender, No organomegaly, Nml bowel sounds, No distention, Other (Large obese pannus) Skin: positive: Warm, Dry Extremities: positive: Non-tender, Full ROM, No pedal edema Neurologic/Psychiatric: positive: Oriented x3, CN's nml (2-12) (Still feels as if though his left lower quadrant is dark on visual inspection But extraocular movements are intact. No nystagmus.), Motor nml, Sensation nml, Slurred/abnml speech (At times stutters. He will stop in mid sentence as he struggles to find the word he wants to say. Having problems naming things.). negative: Weakness, Sensory loss, Facial droop Conclusion/Plan - Problem List (1) Stroke-like symptoms Conclusion/Plan: Manifested as dizziness, intermittently slurred speech. Previous evaluation at outside facility.Possible conversion disorder with panic.Possible multiple sclerosis.Possible TIA. Plan: observation status Get records from old facility Urine for tox screen MRI in the morning. Since these episodes are time and space related, consider multiple sclerosis in the differential. If MRI is positive, will need lumbar puncture and then referral to neurology. ECHO Telemetry (2) JOSELITO (acute kidney injury) Conclusion/Plan: vs CKD. This gentleman has a GFR in the 60s with prev creat 1.2 today he is 1.3 will recommend he avoid NSIADs for his health avoid nephrotoxins in genral (3) Panic disorder Conclusion/Plan: he wants his clonidine and topamax renewed. will do so. - Lab Results Lab results reviewed: Yes Fish Bones: 06/17/20 20:05 06/17/20 20:05 - Diagnostic Imaging Results Diagnostic Imaging Results: positive: Final report reviewed - EKG Results EKG Interpreted Independently: Yes EKG Comparison: No prior EKG EKG Findings: NSR. Poor R wave progression of anterior leads w low voltage maybe due to chest wall size. LAD. No acute STTW chages. Core Measures - Anticipated LOS I expect patient to be DC'd or transferred within 96 hours.: Yes - DVT/VTE - Prophylaxis VTE/DVT Device ordered at admit?: Yes
[2020-06-17] MEDS ORDERED: LACTATED RINGERS 1,000 ML IV SCH (22:00)
[2020-06-17 22:53] LABS: C. PNEUMONIAE- RESP PCR PANEL NOT DETECTED
[2020-06-17] MEDS ORDERED: cloNIDine 0.1 MG TABLET PO STA (22:54)
[2020-06-17] MEDS: TOPIRAMATE 100 MG TABLET PO SCH (23:05)
[2020-06-18] MEDS: SODIUM CHLORIDE FLUSH 0.9% 10 ML SYRINGE IVP SCH ×2 (00:26→08:40)
[2020-06-18] MEDS ORDERED: LORazepam 2 MG/ML VIAL IVP STA (07:24)
--- NOTE | 2020-06-18 07:45 | CT Report ---
PROCEDURE: HEAD WO INDICATIONS: aloc, dizzy TECHNIQUE: Noncontrast 4.5 mm thick angled axial sections acquired from the foramen magnum to the vertex. For r adiation dose reduction, the following was used: automated exposure control, adjustment of mA and/or kV according to patient size. COMPARISON: None. FINDINGS: Image quality: Excellent. CSF spaces: Basal cisterns are patent. No extra-axial fluid collections. Ventricles are normal in size and shape. Brain: No midline shift. No intracranial masses or hemorrhage. Blanca-white matter interface is norm al. Skull and face: Calvarium and visualized facial bones are intact, without suspicious lesions. Sinuses: Visualized sinuses and mastoids are clear. IMPRESSION: 1. No acute intracranial process. The above findings are concordant with preliminary report. Reviewed by: Kinza Evans MD on 06/18/2020 7:44 AM [facility] Approved by: Kinza Evans MD on 06/18/2020 7:44 AM [facility] Station ID: [id number]
[2020-06-18 08:33] LABS: BASOPHILS # (AUTO) 0.1 10^3/uL (0.0-0.1); EOSINOPHILS # (AUTO) 0.1 10^3/uL (0.0-0.7); EOSINOPHILS % (AUTO) 1.6 %; LYMPHOCYTES # (AUTO) 2.3 10^3/uL (1.5-3.5); LYMPHOCYTES % (AUTO) 32.6 %; MEAN CORPUSCULAR HEMOGLOBIN 30.9 pg (27.0-31.0); MEAN CORPUSCULAR HGB CONC 35.4 g/dL (32.0-36.0); MEAN CORPUSCULAR VOLUME 87.3 fL (80.0-94.0); MEAN PLATELET VOLUME 9.6 fL (7.4-11.4); MONOCYTES # (AUTO) 0.5 10^3/uL (0.0-1.0); MONOCYTES % (AUTO) 6.8 %; NEUTROPHILS % (AUTO) 57.4 %; PLT - PLATELET COUNT 202 10^3/uL (130-450); RED BLOOD COUNT 5.18 10^6/uL (4.70-6.10); RED CELL DISTRIBUTION WIDTH 12.7 % (12.0-15.0); WHITE BLOOD COUNT 6.9 x10^3/uL (4.8-10.8)
[2020-06-18] MEDS: TOPIRAMATE 100 MG TABLET PO SCH (08:39)
[2020-06-18 08:44] LABS: CALCIUM 8.7 mg/dL (8.5-10.3); CREATININE 1.1 mg/dL (0.6-1.2)
--- NOTE | 2020-06-18 11:36 | PHARMACY PROGRESS NOTE ---
- Best Possible Medication History Admit Date and Time: 06/17/202136 Processed by: Pharmacy Medication History completed: Yes Patient Interview: Completed Secondary Source(s): Physician records (PATIENT INTERVIEWED BY GAS DISTRIBUTION AND EMERGENCY CLERK. PATIENT ABLE TO CONFIRM HOME MEDICATIONS. PATIENT WAS UNSURE ABOUT ZOLOFT, ALTHOUGH IT IS CURRENT IN INSURANCE RECORDS ), Pharmacy records, Insurance records As the person ultimately responsible for medication therapy, providers are able to order a medication from an existing home medication list in [facility] via the "Reconcile Routine" prior to Confirmation of that medication by retail support specialist. Such practice is discouraged except when the physician, in their clinical judgment, deems that a medical need exists for a medication without regard to previous use.
--- NOTE | 2020-06-18 11:45 | DISCHARGE SUMMARY ---
Discharge Summary Admit Date: 06/17/20 Discharge Date: 06/18/20 Discharging Provider: Ranjeet Ventura Primary Care Provider: [facility] Code Status: Attempt Resuscitation Condition at Discharge: Stable Discharge Disposition: 02 Transfer Acute Care Hosp Discharge Facility Name: [facility] - DIAGNOSES Admission Diagnoses: Strokelike symptoms Acute kidney injury Panic disorder Discharge Diagnoses with Status of Each Condition: Strokelike symptoms - ongoing. Left visual field deficit - ongoing. Acute kidney injury/chronic kidney disease - stable. Panic disorder - stable. - HPI History of Present Illness: H&P per Dr. Contreras: White male who has a history of an anxiety disorder with depression and PTSD and presents with waxing and waning neurological deficit. He states that the deficit actually occurred recently and he was evaluated at [facility] psychiatric facility. He does not remember them doing an MRI. Deficit Was blurred vision, and a left lower quadrant visual field loss. He said it was verified by an eye doctor. It never went away and he went home. He is supposed to follow-up with the family practice clinic on the [facility] but has not gotten around to it yet. Has not reported back for duty yet. Earlier today he began having slurred speech, and he thought that his sugar was high. In addition to the slurred speech, he is having a hard time finding words. He knows what he wants to say, but he cannot say it. He continues to have the left lower field visual deficit that he had before. He is also seeing things move around the room. For instance in the emergency room he felt as if the ceiling was caving in on top of his all and he was startled and grabbed for my hand, and asked if I could see that. So he checked his sugar with his 's glucometer that she left behind after moving to [place], and it read "high" and that brought him to the emergency room. Glucose in our emergency room is 129. There is no history of headache, fever, chills. No sore throat. No runny nose. No cough, congestion. Examination with the emergency room physician shows him to be afebrile at 36.6. Heart rate of 100 the slow down to 83 as time went on. Heart rate is now 82. Respirations are 18 and now 14. Blood pressure started at 133/90 and is now 123/87. He is 100% saturated on room air. Examination has no deficits. CT of the head was done and is negative. However because of 2 separate episodes over time and space, patient is now admitted observation status. He will receive an MRI in the morning. If MRI shows suspicion of MS, he would be a candidate for lumbar puncture. - CONSULTS | PROCEDURES Procedures: CT of the head on June 17 showed no acute abnormalities. - HOSPITAL COURSE Hospital Course: He was admitted to the floor for strokelike symptoms given he had complained of difficulty word finding at home. His labs were unremarkable including CBC, BMP, urine toxicology. He underwent CT of the head which was unremarkable. The plan was to place in observation for MRI the following day. Unfortunately, the MRI machine went down and we are unable to obtain images. Given the patient has ongoing symptoms which he feels are more prominent compared to yesterday, it was felt that he needed MRI sooner than later at discharge would not be appropriate. He predominantly complained of left-sided weakness and numbness. He also complained of a left visual field deficit at the lateral aspect of the left eye and inferiorly which was present reportedly for 3 weeks now. He had an outpatient CT the head was unremarkable and he states he saw an motor scooter mechanic without any significant findings. I did personally attempt to have him walk but he felt quite unsteady with a wide-based gait. He had a positive Romberg on exam. Given his ongoing symptoms, it was felt that he should be transferred to higher level of care for a MRI as well as neurology evaluation. I spoke with Dr. Walter of neurology at [facility] who graciously accepted the patient in transfer. I then spoke with the hospitalist, Dr. Moran who also graciously excepted the patient to his service. Patient was transferred in a stable condition via ALS. - ALLERGIES Allergies/Adverse Reactions: Allergies Allergy/AdvReac Type Severity Reaction Status Date / Time No Known Drug Allergies Allergy Verified 06/17/20 19:42 - MEDICATIONS Home Medications: Ambulatory Orders Medication Instructions Recorded Confirmed Topiramate [Topamax] 100 mg PO BID 06/17/20 06/18/20 cloNIDine [Catapres] 0.2 mg PO HS 06/17/20 06/18/20 Sertraline HCl 100 mg PO DAILY 06/18/20 06/18/20 - PHYSICAL EXAM AT DISCHARGE General Appearance: positive: Other (He appears comfortable at rest. Will be tearful at times and frustrated when he has difficulty with a certain movement.) Eyes Bilateral: positive: Normal inspection, PERRL, Conjunctivae nml, Other (There was nystagmus present with movement of the right and left eye to the right. This was about 2 beats.) ENT: positive: ENT inspection nml Neck: positive: Nml inspection Respiratory: positive: No respiratory distress. negative: Wheezes, Rales Cardiovascular: positive: Regular rate & rhythm, No murmur. negative: Tachycardia, Systolic murmur Abdomen: positive: Non-tender, No distention. negative: Tenderness Extremities: positive: Full ROM, No pedal edema Neurologic/Psychiatric: positive: Weakness (Positive Romberg test.), Slurred/abnml speech (Speech is not slurred but he does have difficulty with word finding at times.), Other (He has excellent strength in all 4 extremities although the left side is weaker on exam in both the upper and lower extremity. He had difficulty with [id number] test with the left upper extremity. He also had difficulty with [id number] with the left lower extremity. No pronator drift.). negative: Disoriented to person, Disoriented to place, Disoriented to time, Facial droop Physical Exam Other/Comments: Vital Signs - 24 hr 06/17/20 06/17/20 06/17/20 19:42 19:54 20:17 Temperature 36.6 C 36.8 C Heart Rate 100 88 83 Heart Rate [ Brachial] Respiratory 18 16 14 Rate Blood Pressure 133/90 H 98/79 115/87 H Blood Pressure [Left Brachial artery] O2 Saturation 98 98 100 06/17/20 06/17/20 06/17/20 20:30 21:05 21:30 Temperature 36.8 C 36.7 C Heart Rate 83 82 83 Heart Rate [ Brachial] Respiratory 14 16 Rate Blood Pressure 126/88 H 123/87 H 127/77 Blood Pressure [Left Brachial artery] O2 Saturation 100 100 06/17/20 06/17/20 06/17/20 22:00 22:30 22:55 Temperature 36.6 C 36.8 C 36.7 C Heart Rate 85 76 Heart Rate [ 72 Brachial] Respiratory 16 16 20 Rate Blood Pressure 168/106 H 145/90 H Blood Pressure 131/88 H [Left Brachial artery] O2 Saturation 100 100 100 06/18/20 06/18/20 06/18/20 00:00 05:19 08:00 Temperature 36.4 C L 36.4 C L 36.5 C Heart Rate Heart Rate [ 58 L 56 L 66 Brachial] Respiratory 16 16 18 Rate Blood Pressure Blood Pressure 121/63 113/70 112/68 [Left Brachial artery] O2 Saturation 95 96 99 06/18/20 06/18/20 09:01 13:00 Temperature 36.5 C 36.6 C Heart Rate 67 Heart Rate [ 76 Brachial] Respiratory 18 18 Rate Blood Pressure Blood Pressure 138/83 H [Left Brachial artery] O2 Saturation 97 99 Oxygen O2 Source Room air - LABS Result Diagrams: 06/18/20 08:25 06/18/20 08:25 Other Lab Results: Laboratory Results - last 24 hr 06/17/20 06/17/20 06/17/20 20:05 20:05 20:05 WBC 9.2 RBC 5.29 Hgb 16.2 Hct 45.4 MCV 85.8 MCH 30.6 MCHC 35.7 RDW 12.4 Plt Count 244 MPV 9.6 Neut # (Auto) 5.7 Lymph # (Auto) 2.7 Pettis # (Auto) 0.6 Eos # (Auto) 0.1 Baso # (Auto) 0.1 Absolute Nucleated RBC 0.00 Nucleated RBC % 0.0 VBG pH VBG pCO2 VBG pO2 VBG HCO3 VBG Total CO2 VBG O2 Saturation VBG Base Excess Sodium 142 Potassium 3.6 Chloride 110 Carbon Dioxide 20 L Anion Gap 12.0 BUN 13 Creatinine 1.3 H Estimated GFR (MDRD) 62 L Glucose 129 H Calcium 9.0 Total Bilirubin 0.9 AST 23 ALT 34 Alkaline Phosphatase 91 Total Protein 7.7 Albumin 4.7 Globulin 3.0 Albumin/Globulin Ratio 1.6 Lipase 40 TSH 2.93 Urine Color Urine Clarity Urine pH Ur Specific Dobbins Urine Protein Urine Glucose (UA) Urine Ketones Urine Occult Blood Urine Nitrite Urine Bilirubin Urine Urobilinogen Ur Leukocyte Esterase Ur Microscopic Review Urine Culture Comments Nasal Adenovirus (PCR) Nasal B. parapertussis DNA (PCR) Nasal Coronavir 229E PCR Nasal Coronavir HKU1 PCR Nasal Coronavir NL63 PCR Nasal Coronavir OC43 PCR Nasal Enterovir/Rhinovir PCR Nasal Influenza B PCR Nasal Influenza A PCR Nasal Parainfluen 1 PCR Nasal Parainfluen 2 PCR Nasal Parainfluen 3 PCR Nasal Parainfluen 4 PCR Nasal RSV (PCR) Nasal B.pertussis DNA PCR Nasal C.pneumoniae (PCR) Vinny Human Metapneumo PCR Nasal M.pneumoniae (PCR) Nasal SARS-CoV-2 (PCR) Salicylates < 6.0 Urine Opiates Screen Ur Oxycodone Screen Urine Methadone Screen Ur Propoxyphene Screen Acetaminophen < 10 L Ur Barbiturates Screen Ur Tricyclics Screen Ur Phencyclidine Scrn Ur Amphetamine Screen U Methamphetamines Scrn U Benzodiazepines Scrn Urine Cocaine Screen U Cannabinoids Screen Ethyl Alcohol < 5.0 Serum Ketones NEGATIVE 06/17/20 06/17/20 06/17/20 20:14 20:47 21:52 WBC RBC Hgb Hct MCV MCH MCHC RDW Plt Count MPV Neut # (Auto) Lymph # (Auto) Pettis # (Auto) Eos # (Auto) Baso # (Auto) Absolute Nucleated RBC Nucleated RBC % VBG pH 7.278 L VBG pCO2 41.8 VBG pO2 31.9 VBG HCO3 19.1 L VBG Total CO2 20.4 L VBG O2 Saturation 64.5 VBG Base Excess -7.3 L Sodium Potassium Chloride Carbon Dioxide Anion Gap BUN Creatinine Estimated GFR (MDRD) Glucose Calcium Total Bilirubin AST ALT Alkaline Phosphatase Total Protein Albumin Globulin Albumin/Globulin Ratio Lipase TSH Urine Color YELLOW Urine Clarity CLEAR Urine pH 6.0 Ur Specific Dobbins 1.025 Urine Protein NEGATIVE Urine Glucose (UA) NEGATIVE Urine Ketones NEGATIVE Urine Occult Blood NEGATIVE Urine Nitrite NEGATIVE Urine Bilirubin NEGATIVE Urine Urobilinogen 0.2 (NORMAL) Ur Leukocyte Esterase NEGATIVE Ur Microscopic Review NOT INDICATED Urine Culture Comments NOT INDICATED Nasal Adenovirus (PCR) NOT DETECTED Nasal B. parapertussis DNA (PCR) NOT DETECTED Nasal Coronavir 229E PCR NOT DETECTED Nasal Coronavir HKU1 PCR NOT DETECTED Nasal Coronavir NL63 PCR NOT DETECTED Nasal Coronavir OC43 PCR NOT DETECTED Nasal Enterovir/Rhinovir PCR NOT DETECTED Nasal Influenza B PCR NOT DETECTED Nasal Influenza A PCR NOT DETECTED Nasal Parainfluen 1 PCR NOT DETECTED Nasal Parainfluen 2 PCR NOT DETECTED Nasal Parainfluen 3 PCR NOT DETECTED Nasal Parainfluen 4 PCR NOT DETECTED Nasal RSV (PCR) NOT DETECTED Nasal B.pertussis DNA PCR NOT DETECTED Nasal C.pneumoniae (PCR) NOT DETECTED Vinny Human Metapneumo PCR NOT DETECTED Nasal M.pneumoniae (PCR) NOT DETECTED Nasal SARS-CoV-2 (PCR) NOT DETECTED Salicylates Urine Opiates Screen NEGATIVE Ur Oxycodone Screen NEGATIVE Urine Methadone Screen NEGATIVE Ur Propoxyphene Screen NEGATIVE Acetaminophen Ur Barbiturates Screen NEGATIVE Ur Tricyclics Screen NEGATIVE Ur Phencyclidine Scrn NEGATIVE Ur Amphetamine Screen NEGATIVE U Methamphetamines Scrn NEGATIVE U Benzodiazepines Scrn NEGATIVE Urine Cocaine Screen NEGATIVE U Cannabinoids Screen NEGATIVE Ethyl Alcohol Serum Ketones 06/18/20 06/18/20 08:25 08:25 WBC 6.9 RBC 5.18 Hgb 16.0 Hct 45.2 MCV 87.3 MCH 30.9 MCHC 35.4 RDW 12.7 Plt Count 202 MPV 9.6 Neut # (Auto) 4.0 Lymph # (Auto) 2.3 Pettis # (Auto) 0.5 Eos # (Auto) 0.1 Baso # (Auto) 0.1 Absolute Nucleated RBC 0.00 Nucleated RBC % 0.0 VBG pH VBG pCO2 VBG pO2 VBG HCO3 VBG Total CO2 VBG O2 Saturation VBG Base Excess Sodium 142 Potassium 3.8 Chloride 114 H Carbon Dioxide 21 Anion Gap 7.0 BUN 10 Creatinine 1.1 Estimated GFR (MDRD) 75 L Glucose 95 Calcium 8.7 Total Bilirubin AST ALT Alkaline Phosphatase Total Protein Albumin Globulin Albumin/Globulin Ratio Lipase TSH Urine Color Urine Clarity Urine pH Ur Specific Dobbins Urine Protein Urine Glucose (UA) Urine Ketones Urine Occult Blood Urine Nitrite Urine Bilirubin Urine Urobilinogen Ur Leukocyte Esterase Ur Microscopic Review Urine Culture Comments Nasal Adenovirus (PCR) Nasal B. parapertussis DNA (PCR) Nasal Coronavir 229E PCR Nasal Coronavir HKU1 PCR Nasal Coronavir NL63 PCR Nasal Coronavir OC43 PCR Nasal Enterovir/Rhinovir PCR Nasal Influenza B PCR Nasal Influenza A PCR Nasal Parainfluen 1 PCR Nasal Parainfluen 2 PCR Nasal Parainfluen 3 PCR Nasal Parainfluen 4 PCR Nasal RSV (PCR) Nasal B.pertussis DNA PCR Nasal C.pneumoniae (PCR) Vinny Human Metapneumo PCR Nasal M.pneumoniae (PCR) Nasal SARS-CoV-2 (PCR) Salicylates Urine Opiates Screen Ur Oxycodone Screen Urine Methadone Screen Ur Propoxyphene Screen Acetaminophen Ur Barbiturates Screen Ur Tricyclics Screen Ur Phencyclidine Scrn Ur Amphetamine Screen U Methamphetamines Scrn U Benzodiazepines Scrn Urine Cocaine Screen U Cannabinoids Screen Ethyl Alcohol Serum Ketones - DIAGNOSTIC IMAGING Diagnostic Imaging Results: Final report reviewed - TIME SPENT Time Spent in Discharge (Minutes): 44
[2020-06-18 13:06] VITALS: BP 138/83
== END 2020-06-18 15:15 | disposition short-term general hospital (02) ==
LOC: ED 19:34 → MS2 21:37
PROVIDERS: ADMIT Specialist; ATTEND Internal Medicine
DX: R42 Dizziness and giddiness (principal); R47.81 Slurred speech; R47.1 Dysarthria and anarthria; R53.1 Weakness; R20.0 Anesthesia of skin; H53.9 Unspecified visual disturbance; N17.9 Acute kidney failure, unspecified; N18.9 Chronic kidney disease, unspecified; F43.10 Post-traumatic stress disorder, unspecified; F41.9 Anxiety disorder, unspecified; G47.33 Obstructive sleep apnea (adult) (pediatric); F10.11 Alcohol abuse, in remission; G43.909 Migraine, unspecified, not intractable, without status migrainosus; F32.9 Major depressive disorder, single episode, unspecified; Z79.899 Other long term (current) drug therapy
CPT/HCPCS: 0202U; 36415; 70450; 80048; 80320; 80329; 81003; 82009; 82803; 83690; 85025; 93005; 96374; 99285; A9270; G0378; J2060; J7120; 80053; 80306; 80307; 81001; 84443; 87086

== ENCOUNTER 2020-06-27 12:42 | Outpatient (CLI) | payer OTHER ==
--- NOTE | 2020-06-27 13:24 | SLEEP CARE CONSULTATION ---
Information from patient questionnaire entered by Agnes Livingston. I have reviewed and concur with the information entered by Agnes Livingston. This document represents the service I personally performed and the decisions made by , Shraddha Haas ARNP. History of Present Illness Service Date and Time: 06/27/2020 1242 Previous diagnosis: Mild, Obstructive Sleep Apnea-Hypopnea Syndrome AHI: 12.4 (in 2019) Reason for follow up: other (11 month) Equipment type: CPAP Equipment obtained from: [employer] (getting supplies as needed) Mask style: Nasal (over the nose) Mask brand: Respironics (Dreamwear) Backup mask available: Yes (older mask) Last cushion change: 2 weeks ago Prior sleep studies: Yes Year and Where: 2019 - [facility] Type of Sleep Study: Polysomnography HPI additional information: BARON MEYERS was diagnosed to have mild, AHI 12.4, obstructive sleep apnea- hypopnea syndrome and returned today for CPAP therapy eleven month follow-up. He has had some difficulties in the last few months. He was inpatient due to a mental breakdown in first week of April. Then in [place] for treatment of his PTSD in May. Hospitalized for adverse reaction to Topamax from June 17 through June 20 but was unable to get to his machine until June 22. He has been using it for the last 2 weeks normally. CPAP Compliance Data - Data Reviewed with Patient Average duration of nightly device use: 6 hr 53 min Compliance rate %: 90.6 (180 days) Current pressure setting (cmH2O): 4-6 Humidity settin Heated hose settin Average residual AHI: 1.5 Average large leak: 1 min 22 sec Subjective Missed days of use due to: reports: illness Patient concerns: reports: nasal congestion (while in [place] because his machine was kept in particle board box, better now at home). denies: aerophagia, mask discomfort, air blowing in eyes, mask leak noise, condensation in mask/hose, dry mouth, nose, throat, epistaxis, other Observed to snore while using device: No Current pressure setting perceived as: comfortable On therapy, patient: reports: sleeping better, awakening more refreshed, being more awake and alert during the day, more rested overall. denies: drowsiness while driving Initial [place] Sleepiness Scale score: 15 (in 2019) Current [place] Sleepiness Scale score: 12 Allergies and Home Medications Drug allergies reviewed: Yes (Topamax) Home medication list reviewed: Yes (clonadine) Review of Systems Review of systems same as previous: No (May, in [place] for PTSD; Mar M. andreykd; Hospt for adverse drug reaction) Psychiatric: reports: other (He had mental breakdown in Mar; Was in treatment for PTSD in Apr/May) Physical Exam Heart Rate: 69 O2 Saturation: 98 Height: 5 ft 10 in Weight: 260 lb Body Mass Index: 37.3 BMI Classification: Obese Impression and Plan 1. Obstructive Sleep Apnea-Hypopnea Syndrome, mild, with good treatment compliance and good apnea control. On CPAP therapy, the patient has better sleep quality and is more rested overall. 2. Obesity, unspecified. Currently patients BMI is 37.2. Obesity increases the risk of apnea, CPAP pressure requirements and overall health risks especially cardiovascular and diabetes. Thus patient is advised to try lose weight. Weight loss can be done with reducing portion size, reducing refined foods and balancing content with vegetables, fruit and whole grain foods. Patient's apnea severity and rationale for treatment to reduce apnea, improve sleep quality and reduce cardiovascular and cerebrovascular events was reviewed. I also reviewed the benefit of consistent device use of CPAP for depression, anxiety and PTSD. * Continue auto CPAP pressure at 4-6 cmH2Ob * Notify me if snoring with mask or feeling that the pressure is too much or too little * Attempt to lose weight * Call this office if any problems using CPAP * Return for follow up in 1 year, or sooner if concerns arise Counseling Topics: Spare mask, Weight loss health impact Visit Type: In Office Time Spent with Patient (minutes): 25 Provider Statement: I spent 100% of the Face to Face Visit with the patient with greater than 50% spent counseling the patient and coordination of care.
== END 2020-06-27 12:43 | disposition home or self-care (01) ==
LOC: SC 12:42
PROVIDERS: ATTEND Nurse Practitioner Family
DX: G47.33 Obstructive sleep apnea (adult) (pediatric) (principal); E66.9 Obesity, unspecified; Z68.37 Body mass index [BMI] 37.0-37.9, adult
CPT/HCPCS: 99212; 99213

== ENCOUNTER 2020-09-18 08:25 | Outpatient (CLI) | payer OTHER ==
--- NOTE | 2020-09-18 09:04 | SLEEP CARE CONSULTATION ---
Information from patient questionnaire entered by Agnes Livingston. I have reviewed and concur with the information entered by Agnes Livingston. This document represents the service I personally performed and the decisions made by , Shraddha Haas ARNP. History of Present Illness Service Date and Time: 09/18/2020 0825 Previous diagnosis: Mild, Obstructive Sleep Apnea-Hypopnea Syndrome AHI: 12.4 (in 2019) Reason for follow up: other (2 month fu) Equipment type: CPAP Equipment obtained from: [employer] (getting supplies as needed) Mask style: Nasal (over the nose) Backup mask available: No ( will keep mask when replaced) Last cushion change: last week Prior sleep [facility]: Yes [facility] of [facility] Study[facility] HPI additional information: BARON MEYERS was diagnosed to have mild, AHI 12.4, obstructive sleep apnea- hypopnea syndrome and returned today for CPAP therapy two month follow-up. CPAP Compliance Data - Data Reviewed with Patient Average duration of nightly device use: 7 hr 5 min Compliance rate %: 93.3 (60 days) Current pressure setting (cmH2O): 4-6 Humidity settin Heated hose settin Average residual AHI: 1.5 Average large leak: 15 sec Subjective Missed days of use due to: reports: other (fell asleep on couch) Patient concerns: reports: dry mouth, nose, throat (sometimes, not very often). denies: aerophagia, mask discomfort, air blowing in eyes, mask leak noise, condensation in mask/hose, nasal congestion, epistaxis, other Current pressure setting perceived as: comfortable On therapy, patient: reports: sleeping better, awakening more refreshed, being more awake and alert during the day, more rested overall. denies: drowsiness while driving Initial [place] Sleepiness Scale score: 15 (in 2019) Current [place] Sleepiness Scale score: 8 Allergies and Home Medications Drug allergies reviewed: Yes (topiramate) Home medication list reviewed: Yes (clonidine, med for PTSD/anxiety) Review of Systems Review of systems same as previous: Yes (no changes) Physical Exam Heart Rate: 78 O2 Saturation: 96 Height: 5 ft 10 in Weight: 259 lb Body Mass Index: 37.1 BMI Classification: Obese Impression and Plan 1. Obstructive Sleep Apnea-Hypopnea Syndrome, mild, with excellent treatment compliance and good apnea control. On CPAP therapy, the patient has better sleep quality and is more rested overall. He has rare episodes of dry mouth and has his humidity set at 5. His heated hose is at 1. He feels it is enough and no adjustment needed at this time. He is going through a medical review and thinks it will take 6 months before it is completed. He will then be moving back to [place]. Patient's apnea severity and rationale for treatment to reduce apnea, improve sleep quality and reduce cardiovascular and cerebrovascular events was reviewed. I also reviewed the benefit of consistent device use of CPAP for depression, anxiety and PTSD (mood disorder). * Continue autoCPAP pressure at 4-6 cmH2O * Notify me if snoring with mask or feeling that the pressure is too much or too little * Attempt to lose weight * Call this office if any problems using CPAP * Return for follow up in 1 year, or sooner if concerns arise Counseling Topics: Spare mask, Weight loss health impact Visit Type: In Office Time Spent with Patient (minutes): 15 Provider Statement: I spent 100% of the Face to Face Visit with the patient with greater than 50% spent counseling the patient and coordination of care.
== END 2020-09-18 08:26 | disposition home or self-care (01) ==
LOC: SC 08:25
PROVIDERS: ATTEND Nurse Practitioner Family
DX: G47.33 Obstructive sleep apnea (adult) (pediatric) (principal); E66.9 Obesity, unspecified; Z68.37 Body mass index [BMI] 37.0-37.9, adult
CPT/HCPCS: 99212